=== PATIENT | female | born 1970 | race African-American/Black ===

== ENCOUNTER 2017-07-08 23:12 | Emergency (ER) | payer OTHER, MEDICAID ==
[2017-07-09] MEDS ORDERED: CYCLOBENZAPRINE10 MG PO (01:14)
[2017-07-09] MEDS ORDERED: NAPROSYN500 MG PO (01:14)
== END 2017-07-09 02:03 | disposition home or self-care (01) ==
LOC: ED 23:12
DX: R51 Headache (principal); M25.561 Pain in right knee; F17.200 Nicotine dependence, unspecified, uncomplicated; Z96.653 Presence of artificial knee joint, bilateral; Z88.5 Allergy status to narcotic agent; V49.59XA Passenger injured in collision with other motor vehicles in traffic accident, initial encounter; Y93.89 Activity, other specified; Y92.413 State road as the place of occurrence of the external cause; Y99.9 Unspecified external cause status